=== PATIENT | female | born 1970 | race Caucasian/White ===

== ENCOUNTER 2016-09-18 22:52 | Emergency (ER) | payer OTHER ==
[~2016-09-18] VITALS: Ht 160 cm; Wt 77.2 kg
[2016-09-18 23:07] VITALS: BP 148/100
[2016-09-19] MEDS ORDERED: WELLBUTRIN XL300 MG PO (02:00)
[2016-09-19] MEDS ORDERED: ZOLOFT100 MG PO (02:00)
[2016-09-19] MEDS ORDERED: VYVANSE70 MG PO (02:00)
[2016-09-19] MEDS ORDERED: SINGULAIR10 MG PO (02:00)
[2016-09-19] MEDS ORDERED: VENTOLIN HFA18 GM IH (02:01)
[2016-09-19] MEDS ORDERED: PRILOSEC20 MG PO (02:01)
[2016-09-19] MEDS ORDERED: ZYRTEC10 M2 PO (02:01)
[2016-09-19] MEDS ORDERED: CELEBREX100 MG PO (02:01)
[2016-09-19] MEDS ORDERED: ZOFRAN4 MG PO (02:16)
== END 2016-09-19 02:32 | disposition home or self-care (01) ==
LOC: EME 22:52
DX: S06.0X0A Concussion without loss of consciousness, initial encounter (principal); S16.1XXA Strain of muscle, fascia and tendon at neck level, initial encounter; S00.11XA Contusion of right eyelid and periocular area, initial encounter; S00.12XA Contusion of left eyelid and periocular area, initial encounter; S00.31XA Abrasion of nose, initial encounter; W20.8XXA Other cause of strike by thrown, projected or falling object, initial encounter; J45.909 Unspecified asthma, uncomplicated
CPT/HCPCS: 70450; 70486; 99281; 99284